=== PATIENT | male | born 1995 | race Two or more races ===

== ENCOUNTER 2023-11-07 03:03 | Emergency (ER) | payer MEDICAID, OTHER ==
[~2023-11-07] VITALS: Ht 157.5 cm; Wt 82.0 kg
[2023-11-07 04:31] VITALS: BP 127/81; TEMP 98.1
[2023-11-07] MEDS ORDERED: LIDOCAINE HCL IJ ONE (05:00)
[2023-11-07] MEDS: LIDOCAINE W/ EPINEPHRINE 1% 20ML VIAL ID ONE (05:12)
[2023-11-07 05:13] VITALS: PULSE 107; RESP 16; O2SAT 97
[2023-11-07] MEDS: LIDOCAINE 1%-Mpf/Epinephrine 1:200,000 30ml VIAL ONE (05:13)
== END 2023-11-07 05:38 | disposition home or self-care (01) ==
LOC: ER 03:03
DX: S01.01XA Laceration without foreign body of scalp, initial encounter (principal); Y08.89XA Assault by other specified means, initial encounter; Y93.89 Activity, other specified; Y92.89 Other specified places as the place of occurrence of the external cause; Y99.8 Other external cause status
CPT/HCPCS: 12001

== ENCOUNTER 2023-11-17 18:40 | Emergency (ER) | payer MEDICAID ==
[~2023-11-17] VITALS: Ht 177.8 cm; Wt 86.0 kg
[2023-11-17 20:47] VITALS: BP 133/78; PULSE 88; RESP 16; TEMP 98.5; O2SAT 99
== END 2023-11-17 22:25 | disposition home or self-care (01) ==
LOC: ER 18:40
DX: S01.01XD Laceration without foreign body of scalp, subsequent encounter (principal); X58.XXXD Exposure to other specified factors, subsequent encounter